=== PATIENT | male | born 2000 | race Two or more races ===

== ENCOUNTER 2024-03-23 11:27 | Emergency (ER) | payer MEDICAID, SELFPAY ==
--- NOTE | 2024-03-23 11:39 | EDNOTE_ITS ---
Lower Extremity Injury RME/HPI General Chief Complaint: Ankle/Foot Injury Stated Complaint: RIGHT FOOT PAIN Time Seen by Provider: 03/23/24 11:39 Arrival date/time: 03/23/24 11:27 RME / HPI RME / HPI Narrative: DR. FARMER MAIN ED EVALUATION: 23 year old male presents to the Emergency Department with complaint of right ankle pain with associated swelling worsening today; patient tripped and fell over his dog at home on carpet floor yesterday at about 1030 PM. He states, this morning it is more swollen and walking was painful so he came for evaluation. Patient denies any of the following: abdominal pain, chest pain, headache, neck pain, loss of consciousness, or any other symptoms at this time. 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 Social Hx: No tobacco, alcohol, or substance use. Related Data Allergies Allergy/AdvReac Type Severity Reaction Status Date / Time codeine Allergy Verified 03/23/24 11:56 Sulfa (Sulfonamide Allergy Verified 03/23/24 11:56 Antibiotics) Review of Systems Review of Systems Systems Reviewed: All systems reviewed, normal except as documented Narrative Review of Systems: GEN: No fever, no chills, no weight loss EYES: No discharge, no visual changes, no pain HEENT: No ear pain, no congestion, no sore throat PULM: No shortness of breath, no cough, no congestion CV: No chest pain, no dyspnea on exertion, no palpitations GI: No nausea, no vomiting, no diarrhea, no pain, no constipation : No frequency, no urgency and no dysuria MUSC/SKEL: + right ankle pain with associated swelling (see HPI), no back pain SKIN: No rash PSYCH: No hallucinations, no depression HEME/LYMPH: No easy bleeding or bruising tendencies NEURO: No weakness, no headache Past Medical History Social History SMOKING STATUS: Never smoker SUBSTANCE USE: does not use ALCOHOL: Never Past Medical History Comments PMH COMMENT: Dennon disease (genetic cardiac disease) ED Exam Narrative Physical exam: Physical Exam: General: The vital signs were reviewed. The patient is non-toxic, in no apparent distress and appears healthy with a patent airway, no respiratory distress and has no apparent circulatory problems. Head & Scalp: Normocephalic, atraumatic. Face: Appears normal and is without lesions, deformity. Ears: Left external pinna appears normal. Right external pinna appears normal. Eyes: The sclera is anicteric. No obvious photophobia. The Left and Right Orbit/Lid/Conjunctiva appears normal without swelling, discoloration or injection. Nose: The nose is without deformity, discharge or tenderness; Throat: Appears normal. The mucous membranes are pink and moist without exudates, redness or mass seen. The tongue appears normal. Neck: The neck is supple and no apparent mass or adenopathy. Chest: The chest wall is normal in size and symmetry and has no chest wall tenderness or crepitus. The patient displays normal ventilator effort without retractions, accessory muscle use and has adequate air movement bilaterally with no wheezes and no rales. Cardiovascular: Regular rate and rhythm; No murmurs, rubs, or gallops; Gastrointestinal: The abdomen appears normal. No obvious hernias or mass. The abdomen is soft and benign, non-distended, with no pain, no guarding and no rebound tenderness. Bowel sounds are present and normal sounding. No CVA tenderness. Genitourinary: Back/Spine: Nontender Extremities/Musculoskeletal/lymphatic: Patient seen in the ambulance bay has a splint placed by EMS on the right ankle which was loosened and partially removed to reveal a swollen distal ankle below the malleoli bilaterally with puffiness. There is no pain on palpating the tib- fib directly. There is tenderness pushing on the ligamentous structures bilaterally. Foot is neurovascularly intact. There is no deformity of the foot seen. Otherwise the remaining extremities are as follows The bilateral upper and lower extremities are warm. There is no evidence of arterial insufficiency. There is no evidence of venous insufficiency/edema. The patient spontaneously moves bilateral upper and lower extremities with no pain and no limitation of movement. There is no apparent, injury or trauma. Skin: The skin is warm, dry and intact. No rashes. No petechia. No purpura. No abnormal bruising. The color is appropriate with no cyanosis. Mental status/Psychiatric: Mental status is appropriate for age. The patient has no apparent delusions, visual hallucinations, no apparent audible hallucinations. The patient has no apparent suicidal thoughts/ideation and no apparent homicidal thoughts/ideation. Neurological: The patient is awake, alert, interactive, cordial, cooperative and is oriented to name and situation. The patient follows commands and answers historical question with no impairment. There is no visual disturbance apparent. The pupils are equal and reactive bilaterally with normal eye movements and no diplopia The bilateral upper and lower extremities have normal strength, normal range of motion and normal functioning. The gait, station and balance appear to be baseline with no acute change Course Quality Measures none Orders Category Date Time Status Splint / Immobilizer STAT Care 03/23/24 12:34 Completed XR ankle comp RT min 3V Stat Exams 03/23/24 11:39 Completed XR foot comp RT min 3V Stat Exams 03/23/24 11:39 Completed Vital Signs Vital signs: Vital Signs Temperature 98.4 F 03/23/24 11:54 Pulse Rate 114 H 03/23/24 11:54 Respiratory Rate 19 03/23/24 11:54 Blood Pressure 123/77 03/23/24 11:54 Pulse Oximetry (%) 99 03/23/24 11:54 Oxygen Delivery Method Room Air 03/23/24 11:54 Procedures -ED Splint Fabrication: Pre-Fabricated Type: Posterior Leg (right ankle) Reason for Splint: Optimal Positioning and Pain Management Site condition: Intact and Pain Circulation Distal to Splint: Yes Movement Distal to Splint: Yes Senation Distal to Splint: Yes Tolerance: Tolerates Well Extremity Injury, Lower MDM Narrative MDM Narrative:: Patient tripped over the dog last night now has swelling in the ankle space over the ligamentous structures. The bones of the tib-fib appear to be intact and nontender. X-rays are ordered and pending of the ankle and foot. Does not appear to be any other injury other than the right ankle. Review of x-rays by myself reveal no fracture dislocation or foreign body of either the ankle or the foot. Patient is in the waiting room they can bring him back and we will put a stirrup on for comfort. After placement patient felt better and is neurovascularly intact. --------- Katheryn Hanson, am scribing for and in the presence of Dr. Farmer. 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 How is presenting disease/condition affected by chronic disease/condition?: uneffected by Evaluation data The following diagnostics were reviewed and interpreted by me:: radiology exam(s) Lab and/or radiology exams considered but not ordered:: none Interpretation Summary: See above under MDM narrative. RADIOLOGY Procedure(s): XR foot comp RT min 3V Accession Number(s): [id number] cc: Ortega Farmer MD; Dalton Christianson MD; NO PRIMARY/FAMILY,PHYSICIAN~ Examination: Foot, right, 3 views Technique: AP, oblique, lateral views foot, 3 views Date and time of exam: March 23, 2024 1145 hrs. Indications: Patient fell 2 days ago with injury to the foot, foot pain Findings: No acute fracture No dislocation No foreign body Impression: No acute fracture Repeat this study short-term as clinically warranted Dictated By: Dalton Christianson MD Procedure(s): XR ankle comp RT min 3V Accession Number(s): [id number] cc: Ortega Farmer MD; Dalton Christianson MD; NO PRIMARY/FAMILY,PHYSICIAN~ EXAMINATION: Ankle, right 3 views . Technique: Ankle AP, oblique, lateral 3 views Date and time of exam: March 23, 2024 1145 hrs. Indications: Patient fell 2 days ago with injury of the ankle, ankle pain. Findings: Normal bone density No acute fracture No ankle dislocation Impression: No acute fracture. Dictated By: Dalton Christianson MD Medications / Prescriptions Medications or Prescriptions considered but not ordered:: none Medication administrations:: see above if any Consultations Consultation(s) initiated? (list below): No Diagnosis Extremity Injury, Lower Differential Diagnosis: ankle sprain and strain, fracture of toe and ankle fracture Most likely diagnosis given after review of the tests above:: Ankle sprain Admission Indicated Admission indicated?: not indicated Admission Request Was there a request for admission?: No Disposition Plan Disposition Plan: Discharge Discharge Attestation Discharge Attestation: The patient and all family members were given an opportunity to ask questions and understood the discharge instructions. Discharge instructions specifically effects, indications for sooner follow up or return to the emergency department, and the expected course of current diagnosis. Patient condition: Stable Discharge Plan Plan Patient Disposition: HOME (Self Care) Problem List Clinical Impression: Ankle sprain Patient/Caregiver Discharge Instructions Education Materials: ED Ankle Sprain (Adult) Additional Instructions: Today it appears you have sprained your ankle which means you have torn the ligaments supporting the bones around the ankle joint is important to keep this elevated. We immobilize it for comfort. We have provided you an Adonis wrap and splint temporarily to minimize any discomfort and as you are able to bear weight on that joint. Follow-up with your doctor in 5 to 7 days. Please protect that foot at this time. You can use acetaminophen for pain. Print Language: Estonian Stand Alone Forms: Erin Award Info., Patient Portal Info Letter
[2024-03-23 11:51] VITALS: PULSE 107; RESP 18; O2SAT 100; BMI 25.0
[2024-03-23 11:54] VITALS: BP 123/77; PULSE 114; RESP 19; TEMP 36.9; O2SAT 99
== END 2024-03-23 12:36 | disposition home or self-care (01) ==
PROVIDERS: Emergency Provider Emergency Medicine
DX: S93.401A Sprain of unspecified ligament of right ankle, initial encounter (principal); S99.921A Unspecified injury of right foot, initial encounter; W01.0XXA Fall on same level from slipping, tripping and stumbling without subsequent striking against object, initial encounter
CPT/HCPCS: 29515; 73610; 73630; 99283